=== PATIENT | female | born 1965 | race Caucasian/White ===

== ENCOUNTER 2023-02-08 16:03 | Observation (INO) ==
[2023-02-08] MEDS ORDERED: PROTONIX INJ 40 MG VIAL IVP ONE (16:27)
[2023-02-08] MEDS ORDERED: ZOFRAN INJ 4 MG VIAL IVP ONE ×2 (16:27→17:40)
[2023-02-08] MEDS ORDERED: NS 1,000 ML IV 1,000 ML IV ONE (16:27)
--- NOTE | 2023-02-08 16:31 | DR.GENAD ---
HPI Time Seen Time Seen by Provider: 02/08/23 16:31 PCP Primary Care Physician: Genet Phelan Complaint/Symptoms Chief Complaint Doctors Comments: 57-year-old female presents for evaluation. Had her second chemotherapy treatment 4 days ago for breast cancer. Was exposed to grandkids with possible flu that day as well. Started feeling poorly 2 days ago. Having nausea, generalized weakness. Now running low-grade temperatures. Having muscle pain, some coughing, productive of some phlegm.. No bowel or bladder issues. Chief Complaint:: Patient states she did chemo on thursday for Breast CA and exposed to family with possible Flu. She began to have nausea without vomiting on Thursday with congestion and weakness Self Treatment fo Chief Complaint: Zofran, phenergan, Flonase COVID-19 Coronavirus risk:travel/contact w/high risk person: No Has patient experienced Coronavirus symptoms: Yes Coronavirus symptoms experienced: Fever and Coughing Nurses notes reviewed Nurses Notes Review: Yes Source History Provided: Patient and Family Member Mode of Arrival Mode of Arrival: Wheelchair Timing Onset of Chief Complaint: 01/30/23 PMH PMH Past Medical History: Yes Past Medical History: GERD and Hypertension Past Medical History Comment: Breast Ca with current Chemo tx Past Surgical History: Yes Surgical History: Family History History of Family Medical Conditions: Yes Social History Does patient currently use any type of tobacco product: No Have you used tobacco products in the last 12 months: No Type of Tobacco Use: None Does any household member use tobacco: No Alcohol Use: None Do you use any recreational Drugs:: No Lives With: Family Lives Where: Home Travel Risk Coronavirus risk:travel/contact w/high risk person: No Has patient experienced Coronavirus symptoms: Yes Coronavirus symptoms experienced: Fever and Coughing Infectious screening In the last 2 months have you had wt loss of >10#?: NO Have you had fever, night sweats or hemotysis?: No Have you traveled outside the country in the last 6 months?: No Isolation: Standard ROS Review of Systems Constitutional: Chills, Fever and Weakness Eyes: No Symptoms Reported ENTM: Nose Congestion Respiratoy: Moist Cough Cardiovascular: No Symptoms Reported Gastrointestinal/Abdominal: Nausea and Vomiting Genitourinary: No Symptoms Reported Neurological: Headache and Weakness Integumentary: No Symptoms Reported All Other Systems: Reviewed and Negative PE Vital Signs Vitals: Vital Signs Temperature 100.2 F Pulse Rate 84 Pulse Rate 92 Pulse Rate 91 Pulse Rate 89 Pulse Rate 90 Pulse Rate 90 Pulse Rate 88 Pulse Rate 90 Respiratory Rate 15 Respiratory Rate 16 Respiratory Rate 16 Blood Pressure 134/64 Blood Pressure 111/65 Blood Pressure 140/68 Blood Pressure 133/78 Blood Pressure 127/58 O2 Sat by Pulse Oximetry 97 O2 Sat by Pulse Oximetry 96 O2 Sat by Pulse Oximetry 97 O2 Sat by Pulse Oximetry 96 O2 Sat by Pulse Oximetry 97 O2 Sat by Pulse Oximetry 96 O2 Sat by Pulse Oximetry 96 O2 Sat by Pulse Oximetry 95 General General Appearance: Alert and In No Apparent Distress Eyes Eye exam: PERRL and EOMI ENT ENT Exam: Normal Oropharynx and Mucous Membranes Moist Neck Neck Exam: Normal Inspection; negative Tenderness Respiratory Respiratory Exam: Normal Lung Sounds Bilat; negative Accessory Muscle Use or Respiratory Distress Cardiovascular Cardiovascular Exam: Regular Rate, Normal Rhythm and Normal Heart Sounds Abdominal Exam Abdominal Exam: Normal Bowel Sounds and Soft; negative Tenderness Extremities Extremities Exam: Normal Inspection; negative Edema Neurologic Neurological Exam: Alert, Oriented X3 and CN II-XII Intact; negative Motor Sensory Deficit Skin Skin Exam: Warm and Dry COURSE Treatment Treatment: 57 female, history of breast cancer, becoming ill after second chemotherapy treatment 4 days ago. Grandkids did have possible flu. Patient running low-grade temperature. Blood pressure low on arrival. Has had nausea and vomiting.. Patient given IV fluids. Given IV Zofran/Protonix. 191 - patient positive for type B influenza. CBC shows a low white count at 2.6 (did have recent chemo), sodium low at 132. Urinalysis acceptable. BP doing better after IV fluids. Recommend observation admission overnight for continue IV fluids in view of her low blood pressure on arrival, recent chemotherapy, low sodium and positive flu. Will treat with Tamiflu. Discussed with Dr. Quiroz, will admit. [facility]OR Labs Reviewed Laboratory Results Reviewed?: Yes 02/08/23 16:34 02/08/23 16:34 Laboratory: WBC 2.6 X10^3/uL (3.6-10.0) L 02/08/23 16:34 RBC 4.23 X10^6/uL (3.5-5.4) 02/08/23 16:34 Hgb 12.3 g/dL (12.0-16.0) 02/08/23 16:34 Hct 36.6 % (36.0-47.0) 02/08/23 16:34 MCV 86.5 fL (80.0-100.0) 02/08/23 16:34 MCH 29.0 pg (27.0-34.0) 02/08/23 16:34 MCHC 33.6 g/dL (33.0-35.0) 02/08/23 16:34 RDW 13.1 % (11.6-16.5) 02/08/23 16:34 Plt Count 129 X10^3/uL (150.0-450.0) L 02/08/23 16:34 MPV 9.0 fL (7.4-11.0) 02/08/23 16:34 Neut % (Auto) 80.0 % (42.0-75.0) H 02/08/23 16:34 Lymph % (Auto) 16.4 % (21.0-51.0) L 02/08/23 16:34 [place] % (Auto) 2.8 % (0.0-13.0) 02/08/23 16:34 Eos % (Auto) 0.1 % (0.9-2.9) L 02/08/23 16:34 Baso % (Auto) 0.7 % (0.2-1.0) 02/08/23 16:34 Neut # (Auto) 2.1 x10^3/uL (2.2-4.8) L 02/08/23 16:34 Lymph # (Auto) 0.4 X10^3/uL (1.3-2.9) L 02/08/23 16:34 [place] # (Auto) 0.1 x10^3/uL (0.3-0.8) L 02/08/23 16:34 Eos # (Auto) 0.0 x10^3/uL (0.0-0.2) 02/08/23 16:34 Baso # (Auto) 0.0 X10^3/uL (0.0-0.1) 02/08/23 16:34 Absolute Nucleated RBC 0.3 /100WBC 02/08/23 16:34 Sodium 132 mmol/L (136-145) L 02/08/23 16:34 Corrected Sodium 133 mmol/L (136-145) L 02/08/23 16:34 Potassium 3.5 mmol/L (3.5-5.1) 02/08/23 16:34 Chloride 97 mmol/L (98-107) L 02/08/23 16:34 Carbon Dioxide 26.8 mmol/L (21-32) 02/08/23 16:34 BUN 16 mg/dL (7-18) 02/08/23 16:34 Creatinine 1.12 mg/dL (0.55-1.02) H 02/08/23 16:34 Est GFR (MDRD) Af Amer > 60 (>60) 02/08/23 16:34 Est GFR (MDRD) Non-Af 53 (>60) L 02/08/23 16:34 Glucose 136 mg/dL (65-99) H 02/08/23 16:34 Calcium 8.5 mg/dL (8.5-10.1) 02/08/23 16:34 Corrected Calcium 9.1 mg/dL (8.5-10.1) 02/08/23 16:34 Total Bilirubin 1.10 mg/dL (0.2-1.0) H 02/08/23 16:34 AST 36 Units/L (15-37) 02/08/23 16:34 ALT 45 Units/L (12-78) 02/08/23 16:34 Alkaline Phosphatase 61 Units/L (46-116) 02/08/23 16:34 Troponin I High Sens 11.7 ng/L (4.0-60.0) 02/08/23 16:34 Total Protein 6.8 g/dL (6.4-8.2) 02/08/23 16:34 Albumin 3.2 g/dL (3.4-5.0) L 02/08/23 16:34 Globulin 3.6 g/dL (2.5-4.5) 02/08/23 16:34 Albumin/Globulin Ratio 0.9 Ratio (1.1-2.1) L 02/08/23 16:34 Lipase 17 Units/L (16-77) 02/08/23 16:34 Specimen Type Clean catch urine 02/08/23 18:46 Urine Color Yellow (YELLOW) 02/08/23 18:46 Urine Appearance Clear (CLEAR) 02/08/23 18:46 Urine pH 5.0 (5.0 - 8.0) 02/08/23 18:46 Ur Specific [place] 1.015 (1.000-1.030) 02/08/23 18:46 Urine Protein 1+ (NEGATIVE) 02/08/23 18:46 Urine Glucose (UA) Negative (NEGATIVE) 02/08/23 18:46 Urine Ketones Negative (NEGATIVE) 02/08/23 18:46 Urine Blood 4+ (NEGATIVE) 02/08/23 18:46 Urine Nitrite Negative (NEGATIVE) 02/08/23 18:46 Urine Bilirubin Negative (NEGATIVE) 02/08/23 18:46 Urine Urobilinogen Normal (NORMAL) 02/08/23 18:46 Ur Leukocyte Esterase Negative (NEGATIVE) 02/08/23 18:46 Urine RBC 10-20 /HPF (0-3) A 02/08/23 18:46 Urine WBC 0-2 /HPF (0-5) 02/08/23 18:46 Ur Squamous Epith Cells Few /HPF (NEGATIVE) 02/08/23 18:46 Amorphous Sediment Trace /HPF (NEGATIVE) 02/08/23 18:46 Urine Bacteria Trace /HPF (NEGATIVE) 02/08/23 18:46 Ur Culture Indicated? No/not indicated 02/08/23 18:46 SARS-CoV-2 (PCR) Negative (NEGATIVE) 02/08/23 16:46 Influenza Type A (PCR) Negative (NEGATIVE) 02/08/23 16:46 Influenza Type B (PCR) Positive (NEGATIVE) A 02/08/23 16:46 RSV (PCR) Negative (NEGATIVE) 02/08/23 16:46 + type B flu Opioid Opioid Risk Tool Age (Adnres box if 16-45): No History of Preadolescent Sexual Abuse: No Total: 0 Total Score Risk Category: Low Risk Copyright: Ugo FORBES predicting aberrant behaviors Discharge Plan Diagnosis Discharge Problem: Type B influenza, Acute hyponatremia, Breast cancer Discharge Plan Patient Disposition: 09 ADMITTED INPATIENT Condition: Stable Prescriptions: No Action promethazine-DM 6.25-15 mg/5 mL syrup 5 ml PO Q4-6H PRN (Reason: cough) carvedilol 25 mg tablet 25 mg PO BID citalopram 40 mg tablet 40 mg PO QDAY levothyroxine 88 mcg tablet 88 mcg PO QAM diclofenac sodium 50 mg tablet,delayed release (DR/EC) 50 mg PO BID levofloxacin 500 mg tablet 500 mg PO QDAY benazepril 10 mg tablet 10 mg PO QDAY ondansetron 4 mg tablet,disintegrating 4 mg PO TID PRN (Reason: nausea) Varubi 90 mg tablet PO Health Concerns: Post Hospitalization: new medications and changes needed to prevent readmission or further decline. Pt educated and given instructions on all concerns. Plan of Treatment: Continue with present treatment and follow up plan. Pt is to keep follow up appointment as instructed and take medications as ordered. Orders to Discharge Patient Discharge Orders: Transfer (Routine); Ordered 02/08/23 Ordered By: Brooks Cooper Follow ups/Referrals Follow ups/Referrals: DANUTA PHELAN [Primary Care Provider] - 3 days
[2023-02-08] MEDS ORDERED: ZOFRAN INJ 4 MG VIAL ONE ×2 (16:32→17:36)
[2023-02-08] MEDS ORDERED: PROTONIX INJ 40 MG VIAL ONE (16:32)
[2023-02-08] MEDS ORDERED: NS 1,000 ML IV 1,000 ML ONE (16:33)
[2023-02-08 16:48] LABS: BASOPHILS % (AUTO) 0.7 % (0.2-1.0); EOSINOPHILS % (AUTO) 0.1 % (0.9-2.9); HEMATOCRIT 36.6 % (36.0-47.0); HEMOGLOBIN 12.3 g/dL (12.0-16.0); LYMPHOCYTES # (AUTO) 0.4 X10^3/uL (1.3-2.9); LYMPHOCYTES % (AUTO) 16.4 % (21.0-51.0); MEAN CORPUSCULAR HGB CONC 33.6 g/dL (33.0-35.0); MEAN CORPUSCULAR VOLUME 86.5 fL (80.0-100.0); MONOCYTES # (AUTO) 0.1 x10^3/uL (0.3-0.8); MONOCYTES % (AUTO) 2.8 % (0.0-13.0); NEUTROPHILS # (AUTO) 2.1 x10^3/uL (2.2-4.8); PLATELET COUNT 129 X10^3/uL (150.0-450.0); RED BLOOD COUNT 4.23 X10^6/uL (3.5-5.4); RED CELL DISTRIBUTION WIDTH 13.1 % (11.6-16.5); WHITE BLOOD COUNT 2.6 X10^3/uL (3.6-10.0)
[2023-02-08 17:05] LABS: ALANINE AMINOTRANSFERASE 45 Units/L (12-78); ALBUMIN 3.2 g/dL (3.4-5.0); ALKALINE PHOSPHATASE 61 Units/L (46-116); ASPARTATE AMINO TRANSFERASE 36 Units/L (15-37); BLOOD UREA NITROGEN 16 mg/dL (7-18); CALCIUM 8.5 mg/dL (8.5-10.1); CARBON DIOXIDE 26.8 mmol/L (21-32); CHLORIDE 97 mmol/L (98-107); COR CA(FOR HYPOALB) 9.1 mg/dL (8.5-10.1); COR NA(FOR HYPERGLY) 133 mmol/L (136-145); CREATININE 1.12 mg/dL (0.55-1.02); GLUCOSE 136 mg/dL (65-99); LIPASE 17 Units/L (16-77); POTASSIUM 3.5 mmol/L (3.5-5.1); SODIUM 132 mmol/L (136-145); TOTAL PROTEIN 6.8 g/dL (6.4-8.2); eGFR NON BLACK RACES 53 (>60)
[2023-02-08 19:06] LABS: APPEARANCE,URINE CLEAR (CLEAR); BACTERIA,URINE TRACE /HPF (NEGATIVE); BILIRUBIN,URINE NEGATIVE (NEGATIVE); BLOOD/HEMOGLOBIN,URINE 4+ (NEGATIVE); COLOR,URINE YELLOW (YELLOW); GLUCOSE, URINE NEGATIVE (NEGATIVE); KETONES,URINE NEGATIVE (NEGATIVE); LEUKOCYTE ESTERASE ,URINE NEGATIVE (NEGATIVE); NITRITES,URINE NEGATIVE (NEGATIVE); PROTEIN,URINE 1+ (NEGATIVE); SQUAMOUS EPITHELIAL CELL,UR FEW /HPF (NEGATIVE); UROBILINOGEN,URINE NORMAL (NORMAL)
[2023-02-08] MEDS ORDERED: TYLENOL 500 MG TAB EXTRA STRENGTH PO ONE ×2 (19:35)
[2023-02-08] MEDS ORDERED: TORADOL 30 MG VIAL ONE (19:35)
[2023-02-08] MEDS ORDERED: TORADOL 30 MG VIAL IVP ONE (19:35)
[2023-02-08] MEDS ORDERED: ZOFRAN INJ 4 MG VIAL IVP PRN (20:04)
[2023-02-08] MEDS ORDERED: MOTRIN TAB 800 MG PO PRN (20:04)
[2023-02-08] MEDS ORDERED: CONSULT PHARMACY - POTASSIUM & MAGNESIUM XX SCH (20:04)
[2023-02-08] MEDS: D5 NS 1,000 ML IV 1,000 ML IV SCH (21:00)
[2023-02-08] MEDS: COREG TAB 25 MG PO SCH (21:59)
[2023-02-08] MEDS: TAMIFLU PO SCH (22:00)
[2023-02-08] MEDS ORDERED: K-DUR TAB 20 MEQ PO SCH (22:00)
[2023-02-08 22:39] VITALS: BMI 40.3
[2023-02-09] MEDS: D5 NS 1,000 ML IV 1,000 ML IV SCH ×4 (05:36→20:16)
[2023-02-09 05:38] LABS: HEMATOCRIT 32.1 % (36.0-47.0); LYMPHOCYTES # (AUTO) 0.7 X10^3/uL (1.3-2.9); MEAN PLATELET VOLUME 9.4 fL (7.4-11.0); MONOCYTES # (AUTO) 0.1 x10^3/uL (0.3-0.8)
[2023-02-09 05:46] LABS: ALANINE AMINOTRANSFERASE 36 Units/L (12-78); ALBUMIN 2.6 g/dL (3.4-5.0); ALKALINE PHOSPHATASE 51 Units/L (46-116); ASPARTATE AMINO TRANSFERASE 32 Units/L (15-37); BLOOD UREA NITROGEN 19 mg/dL (7-18); CALCIUM 7.9 mg/dL (8.5-10.1); CARBON DIOXIDE 27.3 mmol/L (21-32); CHLORIDE 102 mmol/L (98-107); COR NA(FOR HYPERGLY) 137 mmol/L (136-145); CREATININE 1.13 mg/dL (0.55-1.02); GLUCOSE 122 mg/dL (65-99); POTASSIUM 3.3 mmol/L (3.5-5.1); SODIUM 136 mmol/L (136-145); TOTAL PROTEIN 5.7 g/dL (6.4-8.2); eGFR NON BLACK RACES 52 (>60)
[2023-02-09 05:49] LABS: BASOPHILS % (AUTO) 0.7 % (0.2-1.0); EOSINOPHILS % (AUTO) 0.5 % (0.9-2.9); HEMOGLOBIN 10.8 g/dL (12.0-16.0); LYMPHOCYTES % (AUTO) 43.9 % (21.0-51.0); MEAN CORPUSCULAR HEMOGLOBIN 29.2 pg (27.0-34.0); MEAN CORPUSCULAR HGB CONC 33.6 g/dL (33.0-35.0); MONOCYTES % (AUTO) 4.6 % (0.0-13.0); NEUTROPHILS # (AUTO) 0.8 x10^3/uL (2.2-4.8); NEUTROPHILS % (AUTO) 50.3 % (42.0-75.0); PLATELET COUNT 105 X10^3/uL (150.0-450.0); RED CELL DISTRIBUTION WIDTH 13.4 % (11.6-16.5)
[2023-02-09 06:08] LABS: WHITE BLOOD COUNT 1.7 X10^3/uL (3.6-10.0)
[2023-02-09] MEDS ORDERED: CONSULT PHARMACY - POTASSIUM & MAGNESIUM XX SCH (07:00)
[2023-02-09] MEDS ORDERED: PATIENT'S HOME MEDICATION (Citalopram 40 mg tablet) PO SCH (09:00)
[2023-02-09] MEDS: CELEXA PO SCH (09:07)
[2023-02-09] MEDS: COREG TAB 25 MG PO SCH ×2 (09:07→20:15)
[2023-02-09] MEDS: TAMIFLU PO SCH ×2 (09:10→20:15)
[2023-02-09] MEDS: SYNTHROID 88 mcg TAB PO SCH (09:10)
[2023-02-09] MEDS: K-DUR TAB 20 MEQ PO SCH ×2 (11:10→11:57)
[2023-02-09] MEDS: PROTONIX INJ 40 MG VIAL IVP SCH (11:57)
[2023-02-09] MEDS ORDERED: TUSSIONEX PENNKINETIC SUSP PO PRN (13:19)
--- NOTE | 2023-02-09 13:24 | DR.H&P ---
H&P History & Physical for Day of: H&P Date: 02/08/23 Chief Complaint Chief Complaint: FEVER, CCC, WEAKNESS Allergies Allergies Allergy/AdvReac Type Severity Reaction Status Date / Time No Known Allergies Allergy Verified 02/08/23 16:28 History of Present Illness History of Present Illness: Pt is 57 WF, ER admission after presenting with co ccc, fatigue and fever. Patient states she did chemo on thursday for Breast CA and exposed to family with possible Flu. She began to have nausea without vomiting on Thursday with congestion and weakness. Past Medical History Past Medical History: GERD and Hypertension Past Surgical History Surgical History: Family History Family Medical History: Diabetes Mellitus and Cancer Social History Does patient currently use any type of tobacco product: No Have you used tobacco products in the last 12 months: No Type of Tobacco Use: None Does any household member use tobacco: No Alcohol Use: None Drug Use: None Medications Home Medications: Home Medications Medication Instructions Recorded Confirmed Type benazepril 10 mg tablet 10 mg PO QDAY 02/08/23 02/08/23 History carvedilol 25 mg tablet 25 mg PO BID 02/08/23 02/08/23 History citalopram 40 mg tablet 40 mg PO QDAY 02/08/23 02/08/23 History diclofenac sodium 50 mg 50 mg PO BID 02/08/23 02/08/23 History tablet,delayed release levofloxacin 500 mg tablet 500 mg PO QDAY sinusitis 02/08/23 02/08/23 History levothyroxine 88 mcg tablet 88 mcg PO QAM 02/08/23 02/08/23 History ondansetron 4 mg disintegrating 4 mg PO TID PRN nausea 02/08/23 02/08/23 History tablet promethazine-DM 6.25 mg-15 mg/5 mL 5 ml PO Q4-6H PRN cough 02/08/23 02/08/23 History oral syrup rolapitant 90 mg tablet (Varubi) 90 mg PO Q2W 02/08/23 02/09/23 History Labs 02/09/23 04:46 02/09/23 04:46 Labs: Laboratory WBC 1.7 X10^3/uL (3.6-10.0) L* 02/09/23 04:46 RBC 3.70 X10^6/uL (3.5-5.4) 02/09/23 04:46 Hgb 10.8 g/dL (12.0-16.0) L 02/09/23 04:46 Hct 32.1 % (36.0-47.0) L 02/09/23 04:46 MCV 87.0 fL (80.0-100.0) 02/09/23 04:46 MCH 29.2 pg (27.0-34.0) 02/09/23 04:46 MCHC 33.6 g/dL (33.0-35.0) 02/09/23 04:46 RDW 13.4 % (11.6-16.5) 02/09/23 04:46 Plt Count 105 X10^3/uL (150.0-450.0) L 02/09/23 04:46 Plt Count Comment Cancelled 02/09/23 04:46 MPV 9.4 fL (7.4-11.0) 02/09/23 04:46 Neut % (Auto) 50.3 % (42.0-75.0) 02/09/23 04:46 Lymph % (Auto) 43.9 % (21.0-51.0) 02/09/23 04:46 [place] % (Auto) 4.6 % (0.0-13.0) 02/09/23 04:46 Eos % (Auto) 0.5 % (0.9-2.9) L 02/09/23 04:46 Baso % (Auto) 0.7 % (0.2-1.0) 02/09/23 04:46 Neut # (Auto) 0.8 x10^3/uL (2.2-4.8) L 02/09/23 04:46 Lymph # (Auto) 0.7 X10^3/uL (1.3-2.9) L 02/09/23 04:46 [place] # (Auto) 0.1 x10^3/uL (0.3-0.8) L 02/09/23 04:46 Eos # (Auto) 0.0 x10^3/uL (0.0-0.2) 02/09/23 04:46 Baso # (Auto) 0.0 X10^3/uL (0.0-0.1) 02/09/23 04:46 Absolute Nucleated RBC 0.5 /100WBC 02/09/23 04:46 Total Counted Cancelled 02/09/23 04:46 Neutrophils % (Manual) Cancelled 02/09/23 04:46 Band Neutrophils % Cancelled 02/09/23 04:46 Lymphocytes % (Manual) Cancelled 02/09/23 04:46 Monocytes % (Manual) Cancelled 02/09/23 04:46 Eosinophils % (Manual) Cancelled 02/09/23 04:46 Basophils % (Manual) Cancelled 02/09/23 04:46 Metamyelocytes % Cancelled 02/09/23 04:46 Myelocytes % Cancelled 02/09/23 04:46 Promyelocytes % Cancelled 02/09/23 04:46 Nucleated RBCs Cancelled 02/09/23 04:46 Atypical Lymphocytes Cancelled 02/09/23 04:46 Blast Cells Cancelled 02/09/23 04:46 Smudge Cells Cancelled 02/09/23 04:46 Toxic Granulation Cancelled 02/09/23 04:46 Dohle Bodies Cancelled 02/09/23 04:46 Bridger Rods Cancelled 02/09/23 04:46 Plt Clumps, EDTA Cancelled 02/09/23 04:46 Giant Platelets Cancelled 02/09/23 04:46 Plt Morphology Comment Cancelled 02/09/23 04:46 RBC Morphology Cancelled 02/09/23 04:46 Dimorphic RBCs Cancelled 02/09/23 04:46 Polychromasia Cancelled 02/09/23 04:46 Hypochromasia Cancelled 02/09/23 04:46 Poikilocytosis Cancelled 02/09/23 04:46 Basophilic Stippling Cancelled 02/09/23 04:46 Anisocytosis Cancelled 02/09/23 04:46 Microcytosis Cancelled 02/09/23 04:46 Macrocytosis Cancelled 02/09/23 04:46 Spherocytes Cancelled 02/09/23 04:46 Pappenheimer Bodies Cancelled 02/09/23 04:46 Sickle Cells Cancelled 02/09/23 04:46 Target Cells Cancelled 02/09/23 04:46 Tear Drop Cells Cancelled 02/09/23 04:46 Ovalocytes Cancelled 02/09/23 04:46 Stomatocytes Cancelled 02/09/23 04:46 Helmet Cells Cancelled 02/09/23 04:46 Cardona-[place] Bodies Cancelled 02/09/23 04:46 [place] Rings Cancelled 02/09/23 04:46 [place] Cells Cancelled 02/09/23 04:46 Crenated Cell Cancelled 02/09/23 04:46 Acanthocytes (Spur) Cancelled 02/09/23 04:46 Rouleaux Cancelled 02/09/23 04:46 Schistocytes Cancelled 02/09/23 04:46 Sodium 136 mmol/L (136-145) 02/09/23 04:46 Corrected Sodium 137 mmol/L (136-145) 02/09/23 04:46 Potassium 3.3 mmol/L (3.5-5.1) L 02/09/23 04:46 Chloride 102 mmol/L (98-107) 02/09/23 04:46 Carbon Dioxide 27.3 mmol/L (21-32) 02/09/23 04:46 BUN 19 mg/dL (7-18) H 02/09/23 04:46 Creatinine 1.13 mg/dL (0.55-1.02) H 02/09/23 04:46 Est GFR (MDRD) Af Amer > 60 (>60) 02/09/23 04:46 Est GFR (MDRD) Non-Af 52 (>60) L 02/09/23 04:46 Glucose 122 mg/dL (65-99) H 02/09/23 04:46 POC Glucose (mg/dL) 107 mg/dL (65-99) H 02/08/23 22:03 Calcium 7.9 mg/dL (8.5-10.1) L 02/09/23 04:46 Corrected Calcium 9.0 mg/dL (8.5-10.1) 02/09/23 04:46 Magnesium 2.0 mg/dL (2.0-2.9) 02/09/23 04:46 Total Bilirubin 0.60 mg/dL (0.2-1.0) 02/09/23 04:46 AST 32 Units/L (15-37) 02/09/23 04:46 ALT 36 Units/L (12-78) 02/09/23 04:46 Alkaline Phosphatase 51 Units/L (46-116) 02/09/23 04:46 Troponin I High Sens 11.7 ng/L (4.0-60.0) 02/08/23 16:34 Total Protein 5.7 g/dL (6.4-8.2) L 02/09/23 04:46 Albumin 2.6 g/dL (3.4-5.0) L 02/09/23 04:46 Globulin 3.1 g/dL (2.5-4.5) 02/09/23 04:46 Albumin/Globulin Ratio 0.8 Ratio (1.1-2.1) L 02/09/23 04:46 Lipase 17 Units/L (16-77) 02/08/23 16:34 Specimen Type Clean catch urine 02/08/23 18:46 Urine Color Yellow (YELLOW) 02/08/23 18:46 Urine Appearance Clear (CLEAR) 02/08/23 18:46 Urine pH 5.0 (5.0 - 8.0) 02/08/23 18:46 Ur Specific [place] 1.015 (1.000-1.030) 02/08/23 18:46 Urine Protein 1+ (NEGATIVE) 02/08/23 18:46 Urine Glucose (UA) Negative (NEGATIVE) 02/08/23 18:46 Urine Ketones Negative (NEGATIVE) 02/08/23 18:46 Urine Blood 4+ (NEGATIVE) 02/08/23 18:46 Urine Nitrite Negative (NEGATIVE) 02/08/23 18:46 Urine Bilirubin Negative (NEGATIVE) 02/08/23 18:46 Urine Urobilinogen Normal (NORMAL) 02/08/23 18:46 Ur Leukocyte Esterase Negative (NEGATIVE) 02/08/23 18:46 Urine RBC 10-20 /HPF (0-3) A 02/08/23 18:46 Urine WBC 0-2 /HPF (0-5) 02/08/23 18:46 Ur Squamous Epith Cells Few /HPF (NEGATIVE) 02/08/23 18:46 Amorphous Sediment Trace /HPF (NEGATIVE) 02/08/23 18:46 Urine Bacteria Trace /HPF (NEGATIVE) 02/08/23 18:46 Ur Culture Indicated? No/not indicated 02/08/23 18:46 SARS-CoV-2 (PCR) Negative (NEGATIVE) 02/08/23 16:46 Influenza Type A (PCR) Negative (NEGATIVE) 02/08/23 16:46 Influenza Type B (PCR) Positive (NEGATIVE) A 02/08/23 16:46 RSV (PCR) Negative (NEGATIVE) 02/08/23 16:46 Review of Systems Constitutional: Fever, Chills and Malaise Eyes: No Symptoms Reported ENT: Nose Congestion Respiratory: Cough Cardiovascular: No Symptoms Reported Gastrointestinal: Nausea and Diarrhea Genitourinary: No Symptoms Reported Musculoskeletal: No Symptoms Reported Skin: No Symptoms Reported Neurological: No Symptoms Reported Physical Exam Vital Signs: Vital Signs Temperature 98.8 F Pulse Rate [Brachial] 75 Respiratory Rate 18 Blood Pressure [Right Arm] 117/70 O2 Sat by Pulse Oximetry 98 Oriented: Normal Eyes: Normal Ear: Normal Nose: Discharge Throat: Dry Respiratory: RLL Diminished and LLL Diminished Cardiovascular: Normal : Normal Auscultation: Bowel Sounds: Increased Tenderness: Normal Skin: Decreased [place] Musculoskeletal: Normal Psychiatric: Anxiety Affect: Anxious Speech Pattern: Clear and Appropriate Assessment/Plan (1) Type B influenza: Narrative Support Text: ADMIT, GENTLE IV HYDRATION BP CONTROL, POTASSIUM REPLACEMENT PRN CONFIRM HOME MEDICATION TAMIFLU 75MG PO BID X 5 DAYS PRN FEVER CONTROL Status: Acute (2) Acute hyponatremia: Status: Acute (3) Breast cancer: Status: Acute
[2023-02-09 15:32] LABS: CRYPTOSPORIDIUM PARVUM ANTIGEN NEGATIVE (NEGATIVE); GIARDIA LAMBLIA ANTIGEN NEGATIVE (NEGATIVE)
[2023-02-09] MEDS: LOMOTIL PO PRN (17:18)
--- NOTE | 2023-02-10 01:28 | RAD ---
EXAM:CHEST, 1 VIEWHISTORY:Influenza, coughCOMPARISON:CT exam of the chest January 14, 2023TECHNIQUE:One-view frontal chestFINDINGS:There is a central venous port present with tip overlying superior vena cava. The trachea is midline. The heart size is upper limits of normal. There are hazy airspace opacities in the right lower lobe. The left lung is grossly clear.IMPRESSION:Right lower lobe pneumoniaTHIS IS AN ELECTRONICALLY VERIFIED FINAL REPORT02/10/2023 1:14 AM - Electronically signed by Eliazar Cho MD
[2023-02-10] MEDS ORDERED: NS 1/2 1,000 ML IV 1,000 ML IV SCH (02:00)
[2023-02-10] MEDS ORDERED: VIBRAMYCIN 100 MG in NS 100 ML IV + SPIKE MINIBAG* 100 ML IV SCH (02:00)
[2023-02-10 02:26] LABS: BASOPHILS % (AUTO) 0.8 % (0.2-1.0); EOSINOPHILS % (AUTO) 1.1 % (0.9-2.9); HEMATOCRIT 29.2 % (36.0-47.0); HEMOGLOBIN 9.9 g/dL (12.0-16.0); LYMPHOCYTES % (AUTO) 45.6 % (21.0-51.0); MEAN CORPUSCULAR HEMOGLOBIN 29.4 pg (27.0-34.0); MEAN CORPUSCULAR HGB CONC 33.9 g/dL (33.0-35.0); MEAN CORPUSCULAR VOLUME 86.8 fL (80.0-100.0); MONOCYTES # (AUTO) 0.1 x10^3/uL (0.3-0.8); MONOCYTES % (AUTO) 4.5 % (0.0-13.0); PLATELET COUNT 95 X10^3/uL (150.0-450.0); RED BLOOD COUNT 3.37 X10^6/uL (3.5-5.4); RED CELL DISTRIBUTION WIDTH 13.3 % (11.6-16.5); WHITE BLOOD COUNT 2.1 X10^3/uL (3.6-10.0)
[2023-02-10] MEDS: LOMOTIL PO PRN ×2 (02:28→20:43)
[2023-02-10 02:34] LABS: ALANINE AMINOTRANSFERASE 33 Units/L (12-78); ALBUMIN 2.4 g/dL (3.4-5.0); ALKALINE PHOSPHATASE 50 Units/L (46-116); ASPARTATE AMINO TRANSFERASE 32 Units/L (15-37); BLOOD UREA NITROGEN 10 mg/dL (7-18); CALCIUM 7.5 mg/dL (8.5-10.1); CHLORIDE 107 mmol/L (98-107); COR CA(FOR HYPOALB) 8.8 mg/dL (8.5-10.1); CREATININE 0.88 mg/dL (0.55-1.02); GLUCOSE 102 mg/dL (65-99); POTASSIUM 3.5 mmol/L (3.5-5.1); SODIUM 139 mmol/L (136-145); TOTAL PROTEIN 5.4 g/dL (6.4-8.2); eGFR NON BLACK RACES > 60 (>60)
[2023-02-10] MEDS ORDERED: VIBRAMYCIN IV ONE (02:35)
[2023-02-10] MEDS ORDERED: NS 100 ML IV 100 ML ONE (02:35)
[2023-02-10 02:37] LABS: PLATELET MORPHOLOGY COMMENT NORMAL (NORMAL)
[2023-02-10] MEDS ORDERED: CONSULT PHARMACY - POTASSIUM & MAGNESIUM XX SCH (03:00)
[2023-02-10] MEDS: D5 NS 1,000 ML IV 1,000 ML IV SCH ×2 (04:07→20:43)
--- NOTE | 2023-02-10 07:37 | RAD ---
EXAM:Two-view chestHISTORY:Pneumonia, fluCOMPARISON:02/09/2023FINDINGS:There is a left-sided port present. Heart is enlarged. Lungs appear well inflated. There is infiltrate present in the right lower lobe slightly more prominent than on the prior examination. Remainder of the lung kunz are clear. No pleural effusions are identified.IMPRESSION:Right lower lobe infiltrates slightly more prominent. Follow-up until complete resolution is recommended.THIS IS AN ELECTRONICALLY VERIFIED FINAL REPORT02/10/2023 7:35 AM - Electronically signed by Bernard Slade MD
[2023-02-10] MEDS ORDERED: K-DUR TAB 20 MEQ PO SCH (09:00)
[2023-02-10] MEDS: CELEXA PO SCH (09:01)
[2023-02-10] MEDS: SYNTHROID 88 mcg TAB PO SCH (09:01)
[2023-02-10] MEDS: MAG-OX TAB PO SCH ×2 (09:02→10:00)
[2023-02-10] MEDS: TAMIFLU PO SCH ×2 (09:02→20:04)
[2023-02-10] MEDS: COREG TAB 25 MG PO SCH ×2 (09:02→20:04)
[2023-02-10] MEDS: PROTONIX INJ 40 MG VIAL IVP SCH (09:02)
[2023-02-10] MEDS: VIBRAMYCIN 100 MG in NS 100 ML IV 100 ML IV SCH ×2 (09:03→20:05)
[2023-02-10] MEDS: DUONEB 0.5 MG/3 MG (3 mL) NEB SCH ×4 (09:14→20:30)
[2023-02-10] MEDS: PULMICORT NEB TX 0.5 MG NEB SCH ×2 (09:14→20:30)
[2023-02-10 23:40] VITALS: RESP 20
[2023-02-11] MEDS: D5 NS 1,000 ML IV 1,000 ML IV SCH ×2 (04:26→14:10)
[2023-02-11 06:52] LABS: BASOPHILS % (AUTO) 0.4 % (0.2-1.0); EOSINOPHILS % (AUTO) 2.1 % (0.9-2.9); HEMATOCRIT 29.3 % (36.0-47.0); HEMOGLOBIN 9.8 g/dL (12.0-16.0); LYMPHOCYTES # (AUTO) 0.9 X10^3/uL (1.3-2.9); LYMPHOCYTES % (AUTO) 45.8 % (21.0-51.0); MEAN CORPUSCULAR HEMOGLOBIN 29.3 pg (27.0-34.0); MEAN CORPUSCULAR HGB CONC 33.3 g/dL (33.0-35.0); MEAN CORPUSCULAR VOLUME 87.9 fL (80.0-100.0); MEAN PLATELET VOLUME 9.1 fL (7.4-11.0); MONOCYTES # (AUTO) 0.1 x10^3/uL (0.3-0.8); MONOCYTES % (AUTO) 7.4 % (0.0-13.0); NEUTROPHILS # (AUTO) 0.9 x10^3/uL (2.2-4.8); NEUTROPHILS % (AUTO) 44.3 % (42.0-75.0); PLATELET COUNT 102 X10^3/uL (150.0-450.0); RED BLOOD COUNT 3.33 X10^6/uL (3.5-5.4); RED CELL DISTRIBUTION WIDTH 13.9 % (11.6-16.5)
[2023-02-11 07:08] LABS: WHITE BLOOD COUNT 1.9 X10^3/uL (3.6-10.0)
[2023-02-11 07:21] LABS: ALANINE AMINOTRANSFERASE 26 Units/L (12-78); ALBUMIN 2.3 g/dL (3.4-5.0); ALKALINE PHOSPHATASE 50 Units/L (46-116); ASPARTATE AMINO TRANSFERASE 22 Units/L (15-37); BLOOD UREA NITROGEN 7 mg/dL (7-18); CALCIUM 7.8 mg/dL (8.5-10.1); CARBON DIOXIDE 24.2 mmol/L (21-32); CHLORIDE 111 mmol/L (98-107); COR CA(FOR HYPOALB) 9.2 mg/dL (8.5-10.1); CREATININE 0.72 mg/dL (0.55-1.02); GLUCOSE 100 mg/dL (65-99); MAGNESIUM 1.9 mg/dL (2.0-2.9); POTASSIUM 3.5 mmol/L (3.5-5.1); SODIUM 142 mmol/L (136-145); TOTAL PROTEIN 5.6 g/dL (6.4-8.2); eGFR NON BLACK RACES > 60 (>60)
[2023-02-11 07:40] LABS: PLATELET MORPHOLOGY COMMENT NORMAL (NORMAL)
[2023-02-11] MEDS ORDERED: CONSULT PHARMACY - POTASSIUM & MAGNESIUM XX SCH (09:00)
[2023-02-11] MEDS: PULMICORT NEB TX 0.5 MG NEB SCH (09:30)
[2023-02-11] MEDS: DUONEB 0.5 MG/3 MG (3 mL) NEB SCH ×2 (09:30→13:11)
[2023-02-11] MEDS: TAMIFLU PO SCH (10:00)
[2023-02-11] MEDS: SYNTHROID 88 mcg TAB PO SCH (10:00)
[2023-02-11] MEDS: COREG TAB 25 MG PO SCH (10:00)
[2023-02-11] MEDS: PROTONIX INJ 40 MG VIAL IVP SCH (10:00)
[2023-02-11] MEDS: CELEXA PO SCH (10:00)
[2023-02-11] MEDS: VIBRAMYCIN 100 MG in NS 100 ML IV 100 ML IV SCH (10:01)
[2023-02-11 10:03] VITALS: O2SAT 98
[2023-02-11] MEDS ORDERED: K-DUR TAB 20 MEQ PO SCH (11:00)
[2023-02-11] MEDS: MAG-OX TAB PO SCH ×2 (11:15→12:48)
--- NOTE | 2023-02-11 11:36 | RAD ---
EXAM:AP chestHISTORY:FluCOMPARISON:02/10/2023 r.br.br.br in the right lower lung. Heart size unchanged with no new abnormality in left lung or right upper lobe.IMPRESSION:No change since 1 day prior.THIS IS AN ELECTRONICALLY VERIFIED FINAL REPORT02/11/2023 11:33 AM - Electronically signed by Saud Fabian MD
[2023-02-11 11:50] LABS: BILIRUBIN,URINE NEGATIVE (NEGATIVE); BLOOD/HEMOGLOBIN,URINE 1+ (NEGATIVE); GLUCOSE, URINE NEGATIVE (NEGATIVE); KETONES,URINE NEGATIVE (NEGATIVE); LEUKOCYTE ESTERASE ,URINE NEGATIVE (NEGATIVE); NITRITES,URINE NEGATIVE (NEGATIVE); PROTEIN,URINE NEGATIVE (NEGATIVE); UROBILINOGEN,URINE NORMAL (NORMAL)
[2023-02-11 12:05] LABS: APPEARANCE,URINE CLEAR (CLEAR); BACTERIA,URINE TRACE /HPF (NEGATIVE); COLOR,URINE YELLOW (YELLOW); SQUAMOUS EPITHELIAL CELL,UR FEW /HPF (NEGATIVE)
[2023-02-11 12:56] VITALS: BP 169/74; PULSE 72; TEMP 97.8
== END 2023-02-11 14:45 | disposition home or self-care (01) ==
LOC: ER 16:03 → MED/SURG 16:03
PROVIDERS: ADMIT Internal Medicine; ATTEND Internal Medicine
DX: J18.8 Other pneumonia, unspecified organism; I10 Essential (primary) hypertension; R73.09 Other abnormal glucose; E87.1 Hypo-osmolality and hyponatremia; J10.08 Influenza due to other identified influenza virus with other specified pneumonia; D70.1 Agranulocytosis secondary to cancer chemotherapy; E86.0 Dehydration; R53.1 Weakness; Z20.822 Contact with and (suspected) exposure to COVID-19; K21.9 Gastro-esophageal reflux disease without esophagitis; C50.911 Malignant neoplasm of unspecified site of right female breast; Z92.21 Personal history of antineoplastic chemotherapy